=== PATIENT | male | born 1980 | race Hispanic/Latino ===

== ENCOUNTER 2017-03-25 19:25 | Observation (INO) | payer BC, OTHER ==
[2017-03-25 19:30] VITALS: BMI 28.4
[2017-03-25 20:01] LABS: MEAN CELL VOLUME 86.5 fL (80.0-105.0); MEAN CORPUSCULAR HEMOGLOBIN 30.8 pg (25.0-35.0); MEAN CORPUSCULAR HGB CONC 35.6 g/dl (31.0-37.0); MEAN PLATELET VOLUME 10.1 fl (7.0-11.0); RED CELL DISTRIBUTION WIDTH 12.6 % (11.5-14.5); WHITE BLOOD COUNT 8.9 10^3/ul (4.5-11.0)
[2017-03-25 20:09] LABS: ALB/GLOB RATIO 1.5 (1.1-1.8); ALKALINE PHOSPHATASE 52 U/L (38-133); ALT/SGPT 40 U/L (7-56); AST/SGOT 41 U/L (15-59); BILIRUBIN,TOTAL 0.7 mg/dL (0.2-1.3); BLOOD UREA NITROGEN 14 mg/dL (7-21); CALCIUM 10.4 mg/dL (8.4-10.5); CARBON DIOXIDE 15 mmol/L (21-33); CHLORIDE 104 mmol/L (98-107); GFR AFRICAN-AMERICAN > 60; GLUCOSE,RANDOM 126 mg/dL (70-110); POTASSIUM 3.8 mmol/L (3.6-5.0); SODIUM 140 mmol/L (132-148); TOTAL PROTEIN 8.6 g/dL (5.8-8.3)
[2017-03-25 20:17] LABS: INR 1.06 (0.93-1.08); PARTIAL THROMBOPLASTIN TIME 21.8 Seconds (23.7-30.8)
--- NOTE | 2017-03-25 20:26 | ED PDOC ---
Arrival/HPI - General Chief Complaint: Seizure Time Seen by Provider: 03/25/17 19:37 Historian: Patient, Spouse - History of Present Illness Narrative History of Present Illness (Text): 03/25/17 19:40 A 37 year old male, whose past medical history includes hypertension and hyperlipidemia, presents to the emergency department for evaluation status post a new onset seizure that took place approximately an hour prior to arrival. Patient states he does not recollect the event. Patient reports a history of a headache earlier today, which he states he still has. Patient was present during the episode and she states while the patient was resting on the couch he sudden developed tonic colonic movements for about a minute and his eyes rolled back. She states afterwards the patient was post ictal. Patient does not a abrasion to the lateral tongue but denies any urinary incontinence, neck pain, back pain, chest pain, shortness of breath, abdominal pain, nausea, vomiting, or any other complaints at this time. PMD: Dr. Perales Time/Duration: 1 hour Symptom Onset: Sudden Symptom Course: Other Quality: Other Activities at Onset: Rest Context: Home Past Medical History - Provider Review Nursing Documentation Reviewed: Yes - Psychiatric Hx Substance Use: No Family/Social History - Physician Review Nursing Documentation Reviewed: Yes Family/Social History: Unknown Family HX Smoking Status: n Hx Alcohol Use: No Hx Substance Use: No Allergies/Home Meds Allergies/Adverse Reactions: Allergies No Known Allergies Allergy (Unverified 03/25/17 19:46) Review of Systems - Physician Review All systems were reviewed & negative as marked: Yes - Review of Systems Constitutional: absent: Fevers Eyes: Normal ENT: Other (abrasion to the tongue) Respiratory: absent: SOB Cardiovascular: absent: Chest Pain Gastrointestinal: absent: Abdominal Pain Genitourinary Male: absent: Dysuria, Frequency, Hematuria, Urinary Output Changes Musculoskeletal: Normal Skin: Normal Neurological: Headache, Seizure Endocrine: Normal Hemo/Lymphatic: Normal Psychiatric: Normal Physical Exam Vital Signs Reviewed: Yes Finger Stick Blood Glucose: 110 - Systems Exam Head: Present: Atraumatic, Normocephalic Pupils: Present: PERRL Extroacular Muscles: Present: EOMI Conjunctiva: Present: Normal Mouth: Present: Moist Mucous Membranes. No: Normal Tounge (abrasion to the left lateral tongue) Neck: Present: Normal Range of Motion. No: Meningeal Signs Respiratory/Chest: Present: Clear to Auscultation, Good Air Exchange. No: Respiratory Distress, Accessory Muscle Use Cardiovascular: Present: Regular Rate and Rhythm, Normal S1, S2. No: Murmurs Abdomen: Present: Normal Bowel Sounds. No: Tenderness, Distention, Peritoneal Signs Back: Present: Normal Inspection Upper Extremity: Present: Normal Inspection. No: Cyanosis, Edema Lower Extremity: Present: Normal Inspection. No: Edema Neurological: Present: GCS=15, CN II-XII Intact, Speech Normal, Motor Func Grossly Intact, Normal Sensory Function, Other (no neurological deficits) Skin: Present: Warm, Dry, Normal Color. No: Rashes Psychiatric: Present: Alert, Oriented x 3, Normal Insight, Normal Concentration Medical Decision Making ED Course and Treatment: 03/25/17 19:40 Impression: A 37 year old male status post a new onset seizure. Differential Diagnosis include but are not limited to: seizure Plan: -- EKG -- Head CT -- Chest X-ray -- Labs -- Dilantin IV -- Reassess and disposition Progress Notes: EKG shows NSR at 77 BPM with no acute changes, with no prior for comparison. Interpreted by me. 03/25/17 21:17 Reviewed CXR, shows no acute processes. 03/25/17 21:28 CT Head shows: 1. No acute intracranial abnormality. 2. Paranasal sinus disease is noted above. 3. If further evaluation is clinically indicated, an MRI of the brain is recommended. 03/25/17 23:[address] Campos, who is aware and agrees with plan. Accepts pt in to his service. Pt will go to Telemetry observation for seizures. Requests Dr. Melchor on consult. - Lab Interpretations Lab Results: 03/25/17 19:51 03/25/17 19:51 Lab Results 03/25/17 19:51: WBC 8.9, RBC 5.55, Hgb 17.1, Hct 48.0, MCV 86.5, MCH 30.8, MCHC 35.6, RDW 12.6, Plt Count 302, MPV 10.1 03/25/17 19:51: Sodium 140, Potassium 3.8, Chloride 104, Carbon Dioxide 15 L, Anion Gap 25 H, BUN 14, Creatinine 1.2, Est GFR ( Amer) > 60, Est GFR ( Non-Af Amer) > 60, Random Glucose 126 H, Calcium 10.4, Total Bilirubin 0.7, AST 41, ALT 40, Alkaline Phosphatase 52, Lactate Dehydrogenase 486, Total Creatine Kinase 64, Troponin I < 0.01, Total Protein 8.6 H, Albumin 5.2 H, Globulin 3.4, Albumin/Globulin Ratio 1.5 03/25/17 19:51: PT 11.4, INR 1.06, APTT 21.8 L I have reviewed the lab results: Yes - RAD Interpretation Narrative RAD Interpretations (Text): CT Head shows: Brain: The white-peña differentiation is preserved demonstrating no acute territorial type infarct. No acute intracranial hemorrhage is seen. No edema. Midline shift: There is no midline shift. Ventricles: No ventriculomegaly. Bones/joints: The calvarium demonstrates no evidence for a depressed fracture. Soft tissues: No acute abnormality. Sinuses: A mucous retention cyst or polyp is visualized within the left sphenoid sinus. There is a small mucous retention cyst or polyp within a left ethmoid air cell. Mastoid air cells: No mastoid effusion. IMPRESSION: 1. No acute intracranial abnormality. 2. Paranasal sinus disease is noted above. 3. If further evaluation is clinically indicated, an MRI of the brain is recommended. Radiology Orders: 03/25/17 19:46 HEAD W/O CONTRAST [CT] Stat 03/25/17 19:47 CHEST PORTABLE [RAD] Stat Nurse Assessor: ED Physician, Radiologist - EKG Interpretation Interpreted by ED Physician: Yes Type: 12 lead EKG - Medication Orders Current Medication Orders: Discontinued Medications Cyclobenzaprine HCl (Flexeril) 10 mg PO ONCE ONE Stop: 03/25/17 20:58 Last Admin: 03/25/17 21:13 Dose: 10 mg Phenytoin 1,000 mg/ Sodium (Chloride) 250 mls @ 300 mls/hr IVPB STAT STA Stop: 03/25/17 20:37 Last Admin: 03/25/17 20:17 Dose: 300 mls/hr Oxycodone/Acetaminophen (Percocet 5/325 Mg Tab) 1 tab PO STAT STA Stop: 03/25/17 20:57 Last Admin: 03/25/17 21:11 Dose: 1 tab - Scribe Statement The provider has reviewed the documentation as recorded by the Mona Martini Provider Scribe Attestation: All medical record entries made by the Scribe were at my direction and personally dictated by me. I have reviewed the chart and agree that the record accurately reflects my personal performance of the history, physical exam, medical decision making, and the department course for this patient. I have also personally directed, reviewed, and agree with the discharge instructions and disposition. Disposition/Present on Arrival - Present on Arrival Any Indicators Present on Arrival: No History of DVT/PE: No History of Uncontrolled Diabetes: No Urinary Catheter: No History of Decub. Ulcer: No History Surgical Site Infection Following: None - Disposition Have Diagnosis and Disposition been Completed?: Yes Diagnosis: New onset seizure Disposition: HOSPITALIZED Disposition Time: 21:52 Patient Plan: Admission Patient Problems: Current Active Problems Problem Status Onset New onset seizure Acute Condition: STABLE
[2017-03-25 20:29] LABS: TROPONIN I < 0.01 ng/mL
[2017-03-25] MEDS ORDERED: Oxycodone/Acetaminophen 5/325 mg Tab PO STA (20:56)
--- NOTE | 2017-03-25 21:20 | CT ---
EXAM: CT Head Without Intravenous Contrast CLINICAL HISTORY: The patient age is 37 years old and is male; Condition or disease; Convulsions or seizures; Unspecified; Additional info: Seizure/headache Facility exam id and description: Ct heads head w/o contrast TECHNIQUE: Axial computed tomography images of the head/brain without intravenous contrast. This CT exam was performed using one or more of the following dose reduction techniques: automated exposure control, adjustment of the mA and/or kV according to patient size, and/or use of iterative reconstruction technique. EXAM DATE/TIME: 03/25/2017 7:46 PM COMPARISON: No relevant prior studies available. FINDINGS: Brain: The white-peña differentiation is preserved demonstrating no acute territorial type infarct. No acute intracranial hemorrhage is seen. No edema. Midline shift: There is no midline shift. Ventricles: No ventriculomegaly. Bones/joints: The calvarium demonstrates no evidence for a depressed fracture. Soft tissues: No acute abnormality. Sinuses: A mucous retention cyst or polyp is visualized within the left sphenoid sinus. There is a small mucous retention cyst or polyp within a left ethmoid air cell. Mastoid air cells: No mastoid effusion. IMPRESSION: 1. No acute intracranial abnormality. 2. Paranasal sinus disease is noted above. 3. If further evaluation is clinically indicated, an MRI of the brain is recommended.
--- NOTE | 2017-03-25 23:57 | CP.PCM.PN ---
Subjective - Date & Time of Evaluation Date of Evaluation: 03/25/17 Time of Evaluation: 23:57 - Subjective Subjective: Patient was seen at bedside because he complained of pains in both calves. Has no other complaints. Denies chest pain, sob, head ache, dizziness. Had seizure for the first time for about 1 1/2 minutes as per him. Is a smoker . 37 year old male came in after he had a seizure for the first time. Has PMH of HTN,HLD, Smoker. Objective - Vital Signs/Intake and Output Vital Signs (last 24 hours): Temp Pulse Resp BP Pulse Ox 64 15 135/86 98 03/25/17 23:30 03/25/17 23:30 03/25/17 23:30 03/25/17 23:30 - Medications Medications: Current Medications Acetaminophen (Tylenol 325mg Tab) 975 mg PO STAT STA Stop: 03/25/17 23:57 - Labs Labs: PT 11.4 Seconds (9.9-11.8) 03/25/17 19:51 INR 1.06 (0.93-1.08) 03/25/17 19:51 APTT 21.8 Seconds (23.7-30.8) L 03/25/17 19:51 Most Recent Lab Values WBC 8.9 10^3/ul (4.5-11.0) 03/25/17 19:51 RBC 5.55 10^6/uL (3.5-6.1) 03/25/17 19:51 Hgb 17.1 gm/dL (14.0-18.0) 03/25/17 19:51 Hct 48.0 % (42.0-52.0) 03/25/17 19:51 MCV 86.5 fL (80.0-105.0) 03/25/17 19:51 MCH 30.8 pg (25.0-35.0) 03/25/17 19:51 MCHC 35.6 g/dl (31.0-37.0) 03/25/17 19:51 RDW 12.6 % (11.5-14.5) 03/25/17 19:51 Plt Count 302 10^3/uL (120.0-450.0) 03/25/17 19:51 MPV 10.1 fl (7.0-11.0) 03/25/17 19:51 PT 11.4 Seconds (9.9-11.8) 03/25/17 19:51 INR 1.06 (0.93-1.08) 03/25/17 19:51 APTT 21.8 Seconds (23.7-30.8) L 03/25/17 19:51 Sodium 140 mmol/L (132-148) 03/25/17 19:51 Potassium 3.8 mmol/L (3.6-5.0) 03/25/17 19:51 Chloride 104 mmol/L (98-107) 03/25/17 19:51 Carbon Dioxide 15 mmol/L (21-33) L 03/25/17 19:51 Anion Gap 25 (10-20) H 03/25/17 19:51 BUN 14 mg/dL (7-21) 03/25/17 19:51 Creatinine 1.2 mg/dL (0.5-1.4) 03/25/17 19:51 Est GFR ( Amer) > 60 03/25/17 19:51 Est GFR (Non-Af Amer) > 60 03/25/17 19:51 Random Glucose 126 mg/dL (70-110) H 03/25/17 19:51 Calcium 10.4 mg/dL (8.4-10.5) 03/25/17 19:51 Total Bilirubin 0.7 mg/dL (0.2-1.3) 03/25/17 19:51 AST 41 U/L (15-59) 03/25/17 19:51 ALT 40 U/L (7-56) 03/25/17 19:51 Alkaline Phosphatase 52 U/L (38-133) 03/25/17 19:51 Lactate Dehydrogenase 486 U/L (333-699) 03/25/17 19:51 Total Creatine Kinase 64 U/L (35-230) 03/25/17 19:51 Troponin I < 0.01 ng/mL 03/25/17 19:51 Total Protein 8.6 g/dL (5.8-8.3) H 03/25/17 19:51 Albumin 5.2 g/dL (3.0-4.8) H 03/25/17 19:51 Globulin 3.4 gm/dL 03/25/17 19:51 Albumin/Globulin Ratio 1.5 (1.1-1.8) 03/25/17 19:51 - Constitutional Appears: Well, No Acute Distress - Head Exam Head Exam: ATRAUMATIC, NORMAL INSPECTION, NORMOCEPHALIC - Eye Exam Eye Exam: Normal appearance - ENT Exam ENT Exam: Normal External Ear Exam - Neck Exam Neck Exam: Normal Inspection - Respiratory Exam Respiratory Exam: NORMAL BREATHING PATTERN - Cardiovascular Exam Cardiovascular Exam: absent: JVD - GI/Abdominal Exam GI & Abdominal Exam: absent: Distended - Rectal Exam Rectal Exam: Deferred - Exam Additional comments: Above deferred. - Extremities Exam Extremities Exam: Full ROM, Normal Capillary Refill, Normal Inspection. absent : Calf Tenderness, Pedal Edema, Tenderness - Back Exam Back Exam: NORMAL INSPECTION - Neurological Exam Neurological Exam: Alert, Oriented x3 - Psychiatric Exam Psychiatric exam: Normal Affect, Normal Mood - Skin Skin Exam: Normal Color Assessment and Plan - Assessment and Plan (Free Text) Assessment: Both calves pain.- probably from seizure. New onset seizure. HTN. HLD. Smoker. Plan: Tylenol 975 mg PO x 1. Continue present management.
[2017-03-26 01:47] VITALS: TEMP 98.1
[2017-03-26 06:11] VITALS: BP 132/88; PULSE 50; RESP 20; O2SAT 100
--- NOTE | 2017-03-26 07:30 | RAD ---
HISTORY: s/p seizure COMPARISON: No prior. FINDINGS: LUNGS: No active pulmonary disease. PLEURA: No significant pleural effusion identified, no pneumothorax apparent. CARDIOVASCULAR: Normal. OSSEOUS STRUCTURES: No significant abnormalities. VISUALIZED UPPER ABDOMEN: Normal. OTHER FINDINGS: EKG leads in place IMPRESSION: No active disease.
--- NOTE | 2017-03-26 11:06 | CARD ---
APPROVED REPORT EKG Measurement Heart [id number] <Conclusion> Normal sinus rhythm Normal ECG
--- NOTE | 2017-03-26 16:52 | CP.PCM.CON ---
History of Present Illness - History of Present Illness History of Present Illness: NEURO CONSULT NOTE: 03/26/17 CHIEF COMPLAINT: NEW ONSET SEIZURE HPI: THIS IS A 37 YEAR OLD MAN WITH H/O HTN, HLD, SMOKING, WHO CAME IN WITH GENERALIZED TONIC CLONIC SEIZURE LASTING A MINUTE WHILE SITTING ON COUCH WITH POSTICTAL CONFUSION. CURRENTLY HIS NEURO EXAM IS NONFOCAL. CT HEAD NEGATIVE. HE HAS BEEN HAVING SLEEP DEPRIVATION FOR THE PAST WEEK WITH MINIMAL HOURS OF SLEEP. NO H/O SEIZURES CHILD OR ANY TRAUMA TO THE BRAIN. EEG IS NORMAL. ROS: 14 POINT REVIEW OF SYMPTOMS IS NEGATIVE PER HPI. ALLERGIES:NONE SOCIAL HISTORY: NO ILLICIT DRUG USE, BUT ACTIVE SMOKING, OR ETOH USE. FAMILY: NON CONTRIBUTORY. MEDICATIONS: REVIEWED BY NURSE'S RECONCILIATION SHEET. PAST MEDICAL HISTORY: HTN, HLD PHYSICAL EXAM: VITAL SIGNS: REVIEWED BY THE CHART GENERAL EXAM: PATIENT SEEN IN BED, IN NO ACUTE DISTRESS MORBIDLY OBESE. HEENT: PERRLA, EOMI, NECK SUPPLE, NO JVD, NO ADENOPATHY CVS: S1, S2, RRR, NO MURMURS NOTED LUNGS: CLEAR TO AUSCULTATION, NO ADVENTITIOUS SOUNDS ABDOMEN: SOFT AND NONTENDER EXTREMITIES: NO CLUBBING OR CYANOSIS. PP 2+ B/L NEURO: PT IS ALERT AND ORIENTED TO PERSON, PLACE, AND YEAR. SPEECH IS FLUENT WITHOUT ERRORS, CN II-XII INTACT, MOTOR EXAM: NORMAL TONE, NORMAL BULK OF MUSCLE, MOVES ALL EXTREMITIES EQUALLY, NO PRONATOR DRIFT SEEN. SENSORY EXAM: LIGHT TOUCH, PIN PRICK UP TO CALVES B/L, PROPRIOCEPTION , VIBRATION ARE INTACT B/L DEEP TENDON REFLEXES: 2+ THROUGHOUT. COORDINATION: FINGER TO NOSE IS INTACT. HEEL TO GARCIA IS INTACT GAIT: NORMAL. LABS: REVIEWED BY THE CHART. ASSESSMENT AND PLAN: THIS IS A 37 YEAR OLD MAN WITH H/O HTN, HLD, SMOKING, WHO CAME IN WITH GENERALIZED TONIC CLONIC SEIZURE LASTING A MINUTE WHILE SITTING ON COUCH WITH POSTICTAL CONFUSION. CURRENTLY HIS NEURO EXAM IS NONFOCAL. CT HEAD NEGATIVE. HE HAS BEEN HAVING SLEEP DEPRIVATION FOR THE PAST WEEK WITH MINIMAL HOURS OF SLEEP. NO H/O SEIZURES CHILD OR ANY TRAUMA TO THE BRAIN. EEG IS NORMAL. IMPRESSION: NEW ONSET SEIZURE IS SECONDARY TO SLEEP DEPRIVATION PLAN: 1.. ASA 81 MG FOR STROKE PREVENTION 2. MRI BRAIN W/ CONTRAST AN OUTPATIENT 3. D/C HOME AND CANNOT DRIVE UNTIL CLEARED BY ME. THANK YOU PLEASE RECONSULT NECESSARY. Raf QUINN MD Past Patient History - Past Social History Smoking Status: Heavy Smoker > 10 Cigarettes Daily - CARDIAC Hx Hypercholesterolemia: Yes Hx Hypertension: Yes (Patient states he was diagnosed in the past. Currently not taking any meds.) - MUSCULOSKELETAL/RHEUMATOLOGICAL Hx Falls: No - PSYCHIATRIC Hx Psychophysiologic Disorder: Yes (Smokes half pk/day. Drinks 3beers/day.) Hx Substance Use: No (Denies) Meds Allergies/Adverse Reactions: Allergies Allergy/AdvReac Type Severity Reaction Status Date / Time No Known Allergies Allergy Unverified 03/25/17 19:46 Results - Vital Signs Recent Vital Signs: Last Vital Signs Temp 98.1 F 03/26/17 06:00 Pulse 50 L 03/26/17 06:00 Resp 20 03/26/17 06:00 BP 132/88 03/26/17 06:00 Pulse Ox 100 03/26/17 06:00 - Labs Result Diagrams: 03/25/17 19:51 03/25/17 19:51
--- NOTE | 2017-03-26 17:16 | CP.PCM.PN ---
Subjective - Date & Time of Evaluation Date of Evaluation: 03/26/17 Time of Evaluation: 10:00 - Subjective Subjective: EEG REPORT: CONDITION OF THIS RECORDING: DROWSY DIAGNOSIS: AMS MEDICATIONS:l REVIEWED BY NURSE'S RECONCILIATION INTERPRETATION: THIS IS A 16 CHANNEL INTERNATIONAL RECORDING. THE BACKEND OF THIS TRACING WAS COMPOSED OF 8-9 CYCLES PER SECOND. THERE WAS SMALL AMOUNT OF BETA ACTIVITY OF 16-20 CPS IN THE RECORDING AND SMALL AMOUNT OF THETA ACTIVITY OF 5-7 CPS SEEN IN THIS TRACING. DROWSINESS WAS CHARACTERIZED BY MIXED BETA AND THETA ACTIVITIES. SLEEP WAS CHARACTERIZED BY VERTEX TRANSIENT WAVE, SLEEP SPINDLES, AND B/L SLOWING. PHOTIC STIMULATION SHOWED NO CHANGE IN THE TRACING. NO PAROXYSMAL ACTIVITY NOTED IN THIS RECORDING. CONCLUSION: THIS IS NORMAL EEG . NO SEIZURE ACTIVITY. Raf QUINN MD Objective - Vital Signs/Intake and Output Vital Signs (last 24 hours): Temp Pulse Resp BP Pulse Ox 98.1 F 50 L 20 132/88 100 03/26/17 06:00 03/26/17 06:00 03/26/17 06:00 03/26/17 06:00 03/26/17 06:00 - Labs Labs: PT 11.4 Seconds (9.9-11.8) 03/25/17 19:51 INR 1.06 (0.93-1.08) 03/25/17 19:51 APTT 21.8 Seconds (23.7-30.8) L 03/25/17 19:51
== END 2017-03-26 11:56 | disposition home or self-care (01) ==
LOC: ED 19:25 → INTOOBSV 21:51 → ERH 21:51 → 2RSO 23:50
PROVIDERS: ADMIT Internal Medicine Nephrology; ATTEND Internal Medicine Nephrology
DX: G40.409 Other generalized epilepsy and epileptic syndromes, not intractable, without status epilepticus (principal); I10 Essential (primary) hypertension; E78.5 Hyperlipidemia, unspecified; R51 Headache; Z72.820 Sleep deprivation; F17.210 Nicotine dependence, cigarettes, uncomplicated
CPT/HCPCS: 70450; 71010; 80053; 82550; 83615; 84484; 85027; 85610; 85730; 93005; 95812; 96365; 99285; G0378; J1165